=== PATIENT | female | born 1980 | race Caucasian/White ===

== ENCOUNTER 2016-12-10 21:29 | Emergency (ER) | payer OTHER ==
[2016-12-10 21:41] VITALS: BP 124/76
[2016-12-10] MEDS ORDERED: LORazepam 2 MG/ML DISP.SYRIN IM ONE (22:09)
[2016-12-10] MEDS ORDERED: LORazepam 2 MG/ML DISP.SYRIN ONE (22:13)
--- OUTSIDE RECORDS SUMMARY | 2016-12-10 22:17 | XMS REPORT | Continuity of Care Document ---
:1980 Author Organization [employer] [place] [address] Care Team Providers Name Role Phone Unavailable Primary Care Provider Unavailable Source Comments This disclosure is being made pursuant to the nothingGrinder program and maynot contain all information available regarding this patient.[employer] Active Allergies and Adverse Reactions Not on File Current Medications Be aware that medications may not be up to date as of this document. Alwaysverify current medications with the patient. Not on file Active Problems Not on file Social History Tobacco Use Types Packs/Day Years Used Date Never Assessed Plan of Care Health Maintenance Due Date Last Done Comments Retired-Pertussis Vaccine Adult 1999 Retired-Tetanus Vaccine Adult 1999 Pap Smear 2001 Retired-INFLUENZA VACCINE 05/29/2015 Results from Last 3 Months Not on file
[2016-12-10] MEDS ORDERED: fentaNYL CITRATE/PF 50 MCG/ML AMPUL IM ONE (22:23)
[2016-12-10] MEDS ORDERED: CARISOPRODOL 350 MG TABLET PO PRN (22:24)
[2016-12-10] MEDS ORDERED: fentaNYL CITRATE/PF 50 MCG/ML AMPUL ONE (22:27)
--- NOTE | 2016-12-10 22:35 | ERNOTE ---
Back Pain ER HPI Time Seen by Provider: 12/10/16 22:01 Source: patient Immunizations: IMMUNIZATION HX Immunizations Up to Date Yes History of Influenza Vaccine No Hx Pneumococcal Vaccination No Allergies/Adverse Reactions: Allergies morphine Allergy (Verified 12/10/16 21:38) tramadol Allergy (Verified 12/10/16 21:38) Home Medications: HOME MEDICATIONS Acetaminophen with Codeine [Tylenol with Codeine #3 Tablet] 1 each PO Q6H PRN [Last Taken Unknown] Carisoprodol [Soma] 350 mg PO BID PRN #20 tablet 12/10/16 [Last Taken Unknown] Cyclobenzaprine HCl [Flexeril] 10 mg PO TID PRN 12/10/16 [Last Taken Unknown] LORazepam [Ativan] 0.5 mg PO TID PRN 12/10/16 [Last Taken Unknown] Narrative: Patient presents to the emergency room for history of chronic back pain. Patient states that she takes 3 Tylenol with 3 and Flexeril at home. States this does not help. Gets her healthcare at [facility]. Patient states she is allergic to morphine Toradol. She states that she takes Ativan at home. Review of Systems - Review of Systems Constitutional: Present: no symptoms reported EYE: Present: no symptoms reported ENT: Present: no symptoms reported Respiratory: Present: no symptoms reported Cardiology: Present: no symptoms reported Gastrointestinal/Abdominal: Present: no symptoms reported Genitourinary: Present: no symptoms reported Musculoskeletal: Present: See HPI - severe low back pain, this is a chronic pain that the patient has had. She is crying in the room. - Patient's Past Medical History Patient History - Medical: Migraines Patient History - Cardiac/Respiratory: Asthma, Pneumonia Patient History - Cancer: No Hx of Cancer, Thyroid Patient History - Surgical Procedures: , D & C, Hysterectomy, T & A Patient History - Other: None - Social History Living Situations: home Abuse History: No History of abuse Psych History: No pertinent hx Smoking Status: Current every day smoker Alcohol Use: none Drug Use: none - Immunizations Immunizations Up to Date: Yes Hx Pneumococcal Vaccination: No History of Influenza Vaccine: No Physical Exam - Physical Exam General Appearance: Present: wd/wn, alert, mild distress Respiratory: Present: no respiratory distress Cardiovascular/Chest: Present: regular rate, rhythm Extremity Exam: Present: normal inspection, other - she does have significant muscle spasm in the paravertebral muscle groups in the lumbar region bilaterally. She is tender with the mere touching of the skin without any application of pressure. She was able to flex and straighten up at the waist for this examiner. Reports radiation of pain down the right buttock. ED Progress - Vital Signs Patient's Vital Signs:: I have reviewed the patient's vital signs. Vital Signs: Vital Signs 12/10/16 21:35 Temperature 36.7 C Pulse Rate 122 H Respiratory 18 Rate Blood Pressure 124/76 O2 Sat by Pulse 100 Oximetry - Progress/Reassessment Chief Complaint: Back Pain Plan - Plan Plan: Patient has chronic back pain. Examiner offered the patient morphine however she is allergic Toradol she is allergic, upon attempting to put [place] in the system. Flanks the patient as allergic. Being that Dilaudid is chemically related to morphine this examiner is not comfortable administering Dilaudid. I offered this patient 1 mg of Ativan, however the patient adamantly refused the Ativan. Offered the patient fentanyl 50 g as a one-time injection and she did accept fentanyl. I have strongly urged this patient to follow up with her primary care doctor and get established with a painter [employer] for her chronic pain. Departure Clinical Impression: Chronic back pain Qualifiers: Back pain location: low back pain Back pain laterality: bilateral Sciatica presence: with sciatica Sciatica laterality: sciatica of right side Qualified Code(s): M54.41 - Lumbago with sciatica, right side; G89.29 - Other chronic pain - Departure Disposition: Home self-care Condition: Fair Instructions: Chronic Back Pain Prescriptions: Carisoprodol [Soma] 350 mg PO BID PRN #20 tablet PRN Reason: Pain
== END 2016-12-10 23:06 | disposition home or self-care (01) ==
LOC: ER 21:29
DX: M54.41 Lumbago with sciatica, right side (principal); G89.29 Other chronic pain